=== PATIENT | female | born 1965 | race Caucasian/White ===

== ENCOUNTER 2016-11-18 08:21 | Emergency (ER) | payer OTHER ==
[~2016-11-18] VITALS: Ht 154.9 cm; Wt 79.4 kg
[~2016-11-18 08:21] MED LIST: AMBIEN5 MG PO; BENTYL20 MG PO; CLONIDINE HCL0.1 MG PO; LEVAQUIN750 MG PO; LISINOPRIL2.5 MG PO; SEROQUEL12.5 MG PO; TOPAMAX200 MG PO; TYLENOL WITH C1 EACH PO; VENTOLIN HFA18 GM IH; ZANTAC150 MG PO
[2016-11-18] MEDS ORDERED: PREDNISONE20 MG PO (10:13)
[2016-11-18] MEDS ORDERED: NAPROSYN500 MG PO (10:16)
[2016-11-18] MEDS ORDERED: ULTRAM50 MG PO (10:16)
[2016-11-18 10:46] VITALS: BP 129/82
== END 2016-11-18 10:44 | disposition home or self-care (01) ==
LOC: EME 08:21
DX: M54.42 Lumbago with sciatica, left side (principal); I10 Essential (primary) hypertension
CPT/HCPCS: 72131; 99281; 99283; J1885